=== PATIENT | female | born 1995 | race Caucasian/White ===

== ENCOUNTER 2023-11-23 15:16 | Emergency (ER) | payer MEDICAID ==
[~2023-11-23] VITALS: Ht 157.5 cm; Wt 66.2 kg
[2023-11-23 15:46] VITALS: BP_SYST 115; PULSE 68; RESP 15; TEMP 98.1; O2SAT 99
[2023-11-23] MEDS ORDERED: AMOX-423 PO (16:38)
[2023-11-23] MEDS ORDERED: IBUP-1969 PO (16:38)
[2023-11-23 17:09] VITALS: BP_SYST 115; PULSE 68; RESP 15; TEMP 98.1; O2SAT 99
== END 2023-11-23 17:11 | disposition home or self-care (01) ==
LOC: SED 15:16
DX: S61.232A Puncture wound without foreign body of right middle finger without damage to nail, initial encounter (principal); W54.0XXA Bitten by dog, initial encounter; Y93.89 Activity, other specified; Y92.89 Other specified places as the place of occurrence of the external cause; Y99.8 Other external cause status
CPT/HCPCS: 73140; 99283